=== PATIENT | male | born 1985 | race Caucasian/White ===

== ENCOUNTER 2025-02-27 01:24 | Emergency (ER) | payer OTHER ==
[2025-02-27] MEDS ORDERED: DIPH25CA85 PO (03:28)
[2025-02-27] MEDS ORDERED: METH4TAB3 PO (03:28)
[2025-02-27 03:39] VITALS: BP 127/76; PULSE 89; RESP 16; TEMP 97.9
== END 2025-02-27 05:57 | disposition home or self-care (01) ==
LOC: EMS 01:28
DX: L25.9 Unspecified contact dermatitis, unspecified cause (principal)
CPT/HCPCS: 99283; Z7502